=== PATIENT | male | born 1965 | race Two or more races ===

== ENCOUNTER 2016-11-25 01:11 | Emergency (ER) | payer OTHER ==
[~2016-11-25] VITALS: Ht 157.5 cm; Wt 68.0 kg
[2016-11-25 01:20] VITALS: BP 156/65
[2016-11-25] MEDS ORDERED: NKM (01:22)
[2016-11-25] MEDS ORDERED: Bacitracin Oint UD TOPIC ONE (01:45)
[2016-11-25] MEDS ORDERED: Lidocaine 1% 10mg/ml/Epi 0.005mg/ml 30ml vial INJ ONE (01:45)
--- NOTE | 2016-11-25 02:01 | Emergency Room Report ---
History of Present Illness General Chief Complaint: Laceration Source: Patient Present Illness HPI While washing dishes, cut L elbow with sharp knife. Co-workers put material to stop bleeding. Some pain, sharp, 2/10, local. Tetanus UTD. R handed. No somatic complaints. Allergies: Coded Allergies: No Known Allergies (Unverified , 11/25/16) Patient History Past Medical History: see triage record Social History Narrative works at [employer] Reviewed Nursing Documentation: PMH: Agreed, PSxH: Agreed Nursing Documentation-PMH Past Medical History: No Stated History Review of Systems Constitutional: Denies: fever Musculoskeletal: Denies: joint swelling, muscle pain Skin: Reports: see HPI Neurological: Denies: numbness Hematologic/Lymphatic: Denies: easy bleeding Physical Exam Vital Signs Date Time Temp Pulse Resp B/P (MAP) Pulse Ox O2 Delivery O2 Flow Rate FiO2 11/25/16 01:18 98.8 75 16 156/65 98 Room Air Sp02 EP Interpretation: reviewed, normal General Appearance: well appearing, no apparent distress Head: normocephalic, atraumatic Eyes: bilateral eye normal inspection ENT: hearing grossly normal, normal voice Neck: full range of motion, supple Respiratory: no respiratory distress, speaking full sentences Cardiovascular #2: 2+ radial (L) Musculoskeletal: digits/nails normal, gait/station normal, normal range of motion Neurologic: alert, motor strength/tone normal, sensory intact Psychiatric: mood/affect normal Skin: laceration - 3 cm L elbow area Procedures Laceration/Wound Repair Laceration/Wound Repair : Consent: Verbal Wound Location: upper extremity Wound's Depth, Shape: linear Wound Length (cm): 3 Wound Explored: clean - clotting material Irrigated w/ Saline (ccs): 20 Betadine Prep?: Yes Anesthesia: Lidocaine w/ Epi Wound Debrided: clotting material debrieded and cleaned Wound Repaired With: sutures Suture Size/Type: 5:0, nylon Sterile Dressing Applied?: Yes Splint Applied?: No Patient Tolerated: Well Complications: None Medical Decision Making Diagnostic Impression: Primary Impression: Laceration ER Course Patient with laceration L elbow. Needs sutures. Neurovasc intact. No tendon involvement. Not into bursa. Sutured. Tolerated well. Patient stable for outpatient observation and treatment. Last Vital Signs Date Time Temp Pulse Resp B/P (MAP) Pulse Ox O2 Delivery O2 Flow Rate FiO2 11/25/16 02:14 98.8 70 14 145/69 98 Room Air Status: improved Disposition: HOME, SELF-CARE Condition: Improved Scripts Bacitracin (Bacitracin) 28.4 Gm Oint...g. 1 APPLIC TOPIC BID, #10 GM Prov: Jesús Gomes M.D. 11/25/16 Jesús Gomes M.D. Nov 25, 2016 02:01
[2016-11-25] MEDS ORDERED: BACITRACIN15 GM TOPIC (02:03)
[2016-11-25 02:14] VITALS: BP 145/69
== END 2016-11-25 02:14 | disposition home or self-care (01) ==
LOC: EMR 01:56
DX: S51.012A Laceration without foreign body of left elbow, initial encounter (principal); W26.0XXA Contact with knife, initial encounter; Y93.G1 Activity, food preparation and clean up; Y99.9 Unspecified external cause status
CPT/HCPCS: 99284

== ENCOUNTER 2016-12-03 09:14 | Emergency (ER) | payer OTHER ==
[~2016-12-03] VITALS: Ht 167.6 cm; Wt 72.6 kg
[~2016-12-03 09:14] MED LIST: BACITRACIN15 GM TOPIC; NKM
--- NOTE | 2016-12-03 09:39 | Emergency Room Report ---
History of Present Illness General Chief Complaint: Wound Recheck/Suture Removal Source: Patient Present Illness HPI Patient is a 51-year-old male who presented for wound check after a recent suture repair of laceration to his left forearm. The patient denies any complaints. He reports being able to move his hand normally. He denies any recent fever he denies any discharge from the wound. He denied severe pain. Allergies: Coded Allergies: No Known Allergies (Unverified , 11/25/16) Patient History Past Medical History: see triage record Reviewed Nursing Documentation: PMH: Agreed, PSxH: Agreed Nursing Documentation-PMH Past Medical History: No Stated History Review of Systems All Other Systems: negative except mentioned in HPI Physical Exam Vital Signs Date Time Temp Pulse Resp B/P (MAP) Pulse Ox O2 Delivery O2 Flow Rate FiO2 12/03/16 09:22 98.1 61 16 143/73 98 Room Air General Appearance: well appearing, no apparent distress, alert, GCS 15 Head: normocephalic, atraumatic ENT: hearing grossly normal, normal voice Neck: full range of motion, supple Respiratory: no respiratory distress, speaking full sentences Gastrointestinal: normal inspection, non tender, soft Musculoskeletal: normal inspection, back normal, no calf tenderness Neurologic: normal inspection, alert, oriented x3, responsive, manager inspection III-XII nml as tested, normal gait Psychiatric: mood/affect normal Skin: no rash, laceration - healed laceration Medical Decision Making Diagnostic Impression: Primary Impression: Encounter for removal of sutures ER Course Patient presented for wound check. Differential diagnosis included was not limited to infected wound, nonhealed wound, neuroma, healed wound. Patient's wound appears well-healed. Sutures removed. The patient's followup with his worker compensation doctors as needed. Patient can return to regular work. Last Vital Signs Date Time Temp Pulse Resp B/P (MAP) Pulse Ox O2 Delivery O2 Flow Rate FiO2 12/03/16 09:22 98.1 61 16 143/73 98 Room Air Status: improved Disposition: HOME, SELF-CARE Condition: Stable Referrals: NOT CHOSEN IPA/MD,REFERRING (PCP) Patient Instructions: Suture Removal, Care After Eduardo Montenegro Dec 03, 2016 09:39
[2016-12-03 09:40] VITALS: BP 142/82
== END 2016-12-03 09:40 | disposition home or self-care (01) ==
LOC: EMR 09:32
DX: Z48.02 Encounter for removal of sutures (principal)
CPT/HCPCS: 99281